=== PATIENT | male | born 1980 | race American Indian/Alaskan Native ===

== ENCOUNTER 2022-01-12 03:55 | Emergency (ER) | payer SELFPAY ==
--- NOTE | 2022-01-12 04:24 | Emergency Department Report ---
ED General Adult HPI - General Chief complaint: Allergic Reaction Stated complaint: ALLERGIC REACTION Time Seen by Provider: 01/12/22 04:08 Source: patient, EMS (Verbal report received from emergency medical services. EMS documentation not available at time of chart dictation ), RN notes reviewed Mode of arrival: Stretcher Limitations: No Limitations - History of Present Illness Initial comments: The patient is a 41-year-old gentleman, who presents to the ER today with a concern that he might be having an allergic reaction. He reports that he was at check[employer], and believes he consumed something that was covered in peanut oil. He reports that after consuming his meal, he had some itching, and some throat tightness. He reports taking generic [id number] allergy medicine, with some improvement in symptoms. Later on, he believes that he had recurrent symptoms, and family activated 911. EMS reports normal vital signs in the field, without stridor. EMS medicated patient empirically with Benadryl, steroids, and epinephrine. The patient reports that he feels like he is back to his baseline. He denies complaints at this time. -: Sudden Consistency: now resolved Improves with: medication Worsens with: none Associated Symptoms: denies other symptoms - Related Data Previous Rx's Medication Instructions Recorded Last Taken Type EPINEPHrine [Epipen 2-Al] 0.3 mg IM DAILY PRN #2 ml 01/12/22 Unknown Rx Famotidine [Pepcid] 20 mg PO BID #10 tablet 01/12/22 Unknown Rx diphenhydrAMINE [Benadryl] 50 mg PO Q8HR PRN #20 capsule 01/12/22 Unknown Rx Allergies Allergy/AdvReac Type Severity Reaction Status Date / Time peanut Allergy Unknown Verified 01/12/22 04:14 ED Review of Systems ROS: Stated complaint: ALLERGIC REACTION Other details as noted in HPI Comment: All other systems reviewed and negative ED Past Medical Hx - Medications Home Medications: Home Medications Medication Instructions Recorded Confirmed Last Taken Type EPINEPHrine [Epipen 2-Al] 0.3 mg IM DAILY PRN #2 ml 01/12/22 Unknown Rx Famotidine [Pepcid] 20 mg PO BID #10 tablet 01/12/22 Unknown Rx diphenhydrAMINE [Benadryl] 50 mg PO Q8HR PRN #20 capsule 01/12/22 Unknown Rx ED Physical Exam - General Limitations: No Limitations General appearance: alert, in no apparent distress - Head Head exam: Present: atraumatic, normocephalic - Eye Eye exam: Present: normal appearance, EOMI. Absent: nystagmus - ENT ENT exam: Present: normal exam, normal orophraynx, mucous membranes moist, normal external ear exam - Neck Neck exam: Present: normal inspection, full ROM. Absent: tenderness, meningismus - Respiratory Respiratory exam: Present: normal lung sounds bilaterally. Absent: respiratory distress, wheezes, rales, rhonchi, stridor, decreased breath sounds - Cardiovascular Cardiovascular Exam: Present: regular rate, normal rhythm, normal heart sounds. Absent: bradycardia, tachycardia, irregular rhythm, systolic murmur, diastolic murmur, rubs, gallop - GI/Abdominal GI/Abdominal exam: Present: soft. Absent: distended, tenderness, guarding, rebound, rigid, pulsatile mass - Rectal Rectal exam: Present: deferred - Extremities Exam Extremities exam: Present: normal inspection, full ROM, other (2+ pulses noted in the bilateral upper and lower extremities. There is no palpable cord. negative Homans sign. Muscular compartments are soft. The pelvis is stable.). Absent: pedal edema, calf tenderness - Back Exam Back exam: Present: normal inspection. Absent: tenderness, CVA tenderness (R), CVA tenderness (L), paraspinal tenderness, vertebral tenderness - Neurological Exam Neurological exam: Present: alert, oriented X3, other (No facial droop. Tongue midline. Extraocular movements intact bilaterally. Facial sensation intact to light touch in V1, V2, V3 distribution bilaterally. 5 and a 5 strength in 4 extremities. Sensation intact to light touch in 4 extremities.). Absent: motor sensory deficit - Psychiatric Psychiatric exam: Present: normal affect, normal mood - Skin Skin exam: Present: warm, dry, intact, normal color. Absent: rash ED Course Vital Signs 01/12/22 04:30 Temperature 98.3 F Pulse Rate 90 Respiratory 16 Rate Blood Pressure 142/92 [Left] O2 Sat by Pulse 97 Oximetry - Reevaluation(s) Reevaluation #1: 01/12/22 05:15 Patient reassessed multiple times. No respiratory distress. Saturating well on room air. Sleeping comfortably on stretcher. May be discharged. ED Medical Decision Making - Lab Data Vital Signs 01/12/22 04:30 Temperature 98.3 F Pulse Rate 90 Respiratory 16 Rate Blood Pressure 142/92 [Left] O2 Sat by Pulse 97 Oximetry - Medical Decision Making Differential diagnosis, including but not limited to: Allergic reaction, now resolved, encounter for medical screening examination Assessment and plan: 41-year-old gentleman, who is afebrile, with reassuring vital signs, without stridor, respiratory distress, or cutaneous findings, wheezing, currently saturating 100% on room air, likely with resolved allergic reaction. Patient will be observed in the emergency room. If no decompensation, discharged with as needed medications. May follow-up with an outpatient primary care doctor or construction checker for history of peanut allergies. Critical care attestation.: If time is entered above; I have spent that time in minutes in the direct care of this critically ill patient, excluding procedure time. ED Disposition Clinical Impression: Allergic reaction Qualifiers: Encounter type: initial encounter Qualified Code(s): T78.40XA - Allergy, unspecified, initial encounter Disposition: HOME / SELF CARE / HOMELESS Is pt being admited?: No Does the pt Need Aspirin: No Condition: Good Instructions: Allergies, Adult Additional Instructions: Please avoid consumption of peanuts and peanut related food items. Please follow-up with a primary care doctor or computer training specialist within the next 2 weeks. Use the epinephrine pen only if patient develops inability to speak or breathe, or throat tightening. If the symptoms develop, please use the EpiPen, and activate 911 right away. Benadryl and Pepcid can be taken as needed for itching, and allergy symptoms. Please return to the emergency room right away with new pain, worsened pain, migration of pain, projectile vomiting, change in mental status, confusion, inability tolerate liquid feeds, new, worsened or different symptoms not present on the initial emergency room evaluation Prescriptions: diphenhydrAMINE [Benadryl] 50 mg PO Q8HR PRN #20 capsule PRN Reason: Allergic Reaction EPINEPHrine [Epipen 2-Al] 0.3 mg IM DAILY PRN #2 ml PRN Reason: Allergic Reaction Famotidine [Pepcid] 20 mg PO BID #10 tablet Referrals: [facility] [Provider Group] - 3-5 Days Forms: Work/School Release Form(ED)
[2022-01-12 06:44] VITALS: BP 138/96
== END 2022-01-12 06:44 | disposition home or self-care (01) ==
LOC: ED 03:55
DX: T78.40XA Allergy, unspecified, initial encounter (principal); Z91.010 Allergy to peanuts; Z79.899 Other long term (current) drug therapy; X58.XXXA Exposure to other specified factors, initial encounter
CPT/HCPCS: 99283

== ENCOUNTER 2022-01-29 11:54 | Emergency (ER) | payer SELFPAY ==
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
[2022-01-29] MEDS ORDERED: methylPREDNISolone Sod Succinate 125 MG/2 ML INJ IV ONE (12:14)
[2022-01-29 14:43] VITALS: BP 141/100
--- NOTE | 2022-01-31 10:38 | Electrocardiograph Report ---
[facility] Test Date: 2022-01-29 Test Time: 12:08:39 Pat Name: EMMA REYNOSO Department: Room: Gender: M Culinary Internship: ER : 1980 Requested By: MELVA HUIZAR Order Number: [id number] Reading MD: Renny Sevilla Measurements Intervals [place] Rate: 69 P: 55 [place]: 149 QRS: 43 QRSD: 85 T: 32 QT: 364 QTc: 390 Interpretive Statements Sinus rhythm Probable left ventricular hypertrophy No previous ECG available for comparison Electronically Signed On 01-31-2022 10:37:24 EDT by Renny Sevilla
== END 2022-01-29 14:43 | disposition left against medical advice (07) ==
LOC: ED 11:54
DX: T78.1XXA Other adverse food reactions, not elsewhere classified, initial encounter (principal); Z79.899 Other long term (current) drug therapy; X58.XXXA Exposure to other specified factors, initial encounter
CPT/HCPCS: 93005; 96374; 99283; J2930

== ENCOUNTER 2022-03-29 14:48 | Emergency (ER) | payer SELFPAY ==
[2022-03-29 15:10] VITALS: BP 146/102
== END 2022-03-30 05:45 | disposition left against medical advice (07) ==
LOC: ED 14:48
DX: L02.412 Cutaneous abscess of left axilla (principal); Z53.21 Procedure and treatment not carried out due to patient leaving prior to being seen by health care provider

== ENCOUNTER 2022-05-08 07:07 | Emergency (ER) | payer SELFPAY ==
[2022-05-08] MEDS ORDERED: ASPIRIN 325 MG TAB PO ONE (07:25)
[2022-05-08 08:00] LABS: Basophils % (Auto) 0.4 % (0.0-1.8); Eosinophils # (Auto) 0.2 K/mm3 (0.0-0.4); Eosinophils % (Auto) 2.6 % (0.0-4.3); Hematocrit 44.7 % (35.5-45.6); Hemoglobin 14.6 gm/dl (11.8-15.2); Lymphocytes # (Auto) 2.5 K/mm3 (1.2-5.4); Lymphocytes % (Auto) 33.3 % (13.4-35.0); Mean Corpuscular HGB Conc 33 % (32-34); Mean Corpuscular Volume 89 fl (84-94); Monocytes # (Auto) 0.4 K/mm3 (0.0-0.8); Monocytes % (Auto) 5.9 % (0.0-7.3); Platelet Count 289 K/mm3 (140-440); Red Cell Distribution Width 14.9 % (13.2-15.2)
[2022-05-08 08:27] LABS: Alanine Aminotransferase 14 units/L (7-56); Albumin 4.8 g/dL (3.9-5); BUN/Creatinine Ratio 10; Blood Urea Nitrogen 11 mg/dL (9-20); Calcium 9.8 mg/dL (8.4-10.2); Hemolysis Index 3
--- NOTE | 2022-05-08 10:18 | XRay Report ---
CHEST 2 VIEWS INDICATION / CLINICAL INFORMATION: chest pain. COMPARISON: None available. FINDINGS: SUPPORT DEVICES: None. HEART / MEDIASTINUM: No significant abnormality. LUNGS / PLEURA: No significant pulmonary or pleural abnormality. No pneumothorax. ADDITIONAL FINDINGS: No significant additional findings. IMPRESSION: 1. No acute findings. Signer Name: Tawana Wells MD Signed: 05/08/2022 10:13 AM Workstation Name: [id number]
--- NOTE | 2022-05-08 11:24 | Electrocardiograph Report ---
[facility] Test Date: 2022-05-08 Test Time: 07:15:08 Pat Name: EMMA REYNOSO Department: Room: Gender: M Gynecology Teacher: Quirino WEBER RN : 1980 Requested By: ED DOC Order Number: [id number] Reading MD: Ld Guerra Measurements Intervals [place] Rate: 83 P: 61 [place]: 149 QRS: 42 QRSD: 83 T: 28 QT: 376 QTc: 443 Interpretive Statements Sinus rhythm Compared to ECG 01/29/2022 12:08:39 No significant changes Electronically Signed On 05-08-2022 11:23:38 EDT by Ld Guerra
--- NOTE | 2022-05-08 17:22 | Emergency Department Report ---
ED Chest Pain HPI - General Chief Complaint: Chest Pain Stated Complaint: CHEST PAIN/RIGHT ARM NUMBNESS Time Seen by Provider: 05/08/22 17:03 Source: patient Mode of arrival: Ambulatory Limitations: No Limitations - History of Present Illness Initial Comments: 41-year-old male with a past medical history of borderline diabetes (not currently on meds) and hypertension (not on medications for at least 2 years) presents to the hospital complaints of right sided chest and arm numbness and pain since 4 AM. Symptoms are constant. Pain worse with abduction of the right shoulder and palpation. Also experiencing tenderness to the right forearm. No trauma reported. Denies associated symptoms including nausea, vomiting, shortness of breath, or diaphoresis. Denies history of PE/DVT, recent travel, or elevated cholesterol. Patient is a smoker. States his mom has a history of CAD before the age of 65. Patient took a aspirin back and body tablet which helped his pain and it is currently very mild Despite not being on blood pressure medication for the last 2 years patient has normal blood pressure Severity scale (0 -10): 7 - Related Data Previous Rx's Medication Instructions Recorded Last Taken Type EPINEPHrine [Epipen 2-Al] 0.3 mg IM DAILY PRN #2 ml 01/12/22 Unknown Rx Famotidine [Pepcid] 20 mg PO BID #10 tablet 01/12/22 Unknown Rx diphenhydrAMINE [Benadryl] 50 mg PO Q8HR PRN #20 capsule 01/12/22 Unknown Rx Naproxen [Naprosyn] 500 mg PO BID PRN #20 tab 05/08/22 Unknown Rx Allergies Allergy/AdvReac Type Severity Reaction Status Date / Time banana Allergy Hives Verified 03/29/22 15:11 peanut Allergy Unknown Verified 01/29/22 12:03 Heart Score - HEART Score History: Slightly suspicious EKG: Normal Age: < 45 Risk factors: 1-2 risk factors Troponin: < normal limit HEART Score: 1 - EKG Read Time Time EKG Completed: 07:15 EKG Read Time: 07:26 ED Review of Systems ROS: Stated complaint: CHEST PAIN/RIGHT ARM NUMBNESS Other details as noted in HPI Comment: All other systems reviewed and negative ED Past Medical Hx - Past Medical History Previous Medical History?: Yes Hx Hypertension: Yes Hx Diabetes: Yes (Borderline) - Surgical History Past Surgical History?: Yes Additional Surgical History: 12 sx on right hand - Social History Smoking Status: Never Smoker - Medications Home Medications: Home Medications Medication Instructions Recorded Confirmed Last Taken Type EPINEPHrine [Epipen 2-Al] 0.3 mg IM DAILY PRN #2 ml 01/12/22 Unknown Rx Famotidine [Pepcid] 20 mg PO BID #10 tablet 01/12/22 Unknown Rx diphenhydrAMINE [Benadryl] 50 mg PO Q8HR PRN #20 capsule 01/12/22 Unknown Rx Naproxen [Naprosyn] 500 mg PO BID PRN #20 tab 05/08/22 Unknown Rx ED Physical Exam - General Limitations: No Limitations - Other Other exam information: General: No acute distress Head: Atraumatic Eyes: normal appearance ENT: Moist mucous membranes Neck: Normal appearance, no midline tenderness Chest: Clear to auscultation bilaterally, tenderness to right pectoralis muscle extending to right shoulder CV: Regular rate and rhythm Abdomen: Soft, normal bowel sounds, nontender, nondistended, no rebound or guarding Back: Normal inspection Extremity: Normal inspection, full range of motion, tenderness to right volar forearm without warmth, erythema, or swelling. Denies recent IV access Neuro: Alert O x 3, no facial asymmetry, speech clear, no gross motor sensory deficit, zixwbr-[id number]-[id number] function intact, stable gait, visual mcginnis intact, extraocular was intact Psych: Appropriate behavior Skin: No rash ED Course Vital Signs 05/08/22 07:21 Temperature 97.7 F Pulse Rate 85 Respiratory 20 Rate Blood Pressure 136/92 [Right] O2 Sat by Pulse 98 Oximetry DEEPTHI score - Deepthi Score Age > 65: (0) No Aspirin use within the Past 7 Days: (1) Yes 3 or more CAD Risk Factors: (0) No 2 or more Angina events in past 24 hrs: (0) No Known CAD with more than 50% Stenosis: (0) No Elevated Cardiac Markers: (0) No ST Deviation Greater than 0.5mm: (0) No DEEPTHI Score: 1 ED Medical Decision Making - Lab Data Result diagrams: 05/08/22 07:32 05/08/22 07:32 Lab Results 05/08/22 05/08/22 05/08/22 Range/Units 07:32 07:32 10:31 WBC 7.6 (4.5-11.0) K/mm3 RBC 5.00 (3.65-5.03) M/mm3 Hgb 14.6 (11.8-15.2) gm/dl Hct 44.7 (35.5-45.6) % MCV 89 (84-94) fl MCH 29 (28-32) pg MCHC 33 (32-34) % RDW 14.9 (13.2-15.2) % Plt Count 289 (140-440) K/mm3 Lymph % (Auto) 33.3 (13.4-35.0) % [place] % (Auto) 5.9 (0.0-7.3) % Eos % (Auto) 2.6 (0.0-4.3) % Baso % (Auto) 0.4 (0.0-1.8) % Lymph # (Auto) 2.5 (1.2-5.4) K/mm3 [place] # (Auto) 0.4 (0.0-0.8) K/mm3 Eos # (Auto) 0.2 (0.0-0.4) K/mm3 Baso # (Auto) 0.0 (0.0-0.1) K/mm3 Seg Neutrophils % 57.8 (40.0-70.0) % Seg Neutrophils # 4.4 (1.8-7.7) K/mm3 Sodium 142 (137-145) mmol/L Potassium 4.8 (3.6-5.0) mmol/L Chloride 103.8 (98-107) mmol/L Carbon Dioxide 29 (22-30) mmol/L Anion Gap 14 mmol/L BUN 11 (9-20) mg/dL Creatinine 1.1 (0.8-1.3) mg/dL Estimated GFR > 60 ml/min BUN/Creatinine Ratio 10 % Glucose 100 (75-100) mg/dL Calcium 9.8 (8.4-10.2) mg/dL Total Bilirubin 0.30 (0.1-1.2) mg/dL AST 14 (5-40) units/L ALT 14 (7-56) units/L Alkaline Phosphatase 59 (35-129) units/L Troponin T < 0.010 < 0.010 (0.00-0.029) ng/mL Total Protein 7.7 (6.3-8.2) g/dL Albumin 4.8 (3.9-5) g/dL Albumin/Globulin Ratio 1.7 % 05/08/ Range/Units 14:16 WBC (4.5-11.0) K/mm3 RBC (3.65-5.03) M/mm3 Hgb (11.8-15.2) gm/dl Hct (35.5-45.6) % MCV (84-94) fl MCH (28-32) pg MCHC (32-34) % RDW (13.2-15.2) % Plt Count (140-440) K/mm3 Lymph % (Auto) (13.4-35.0) % [place] % (Auto) (0.0-7.3) % Eos % (Auto) (0.0-4.3) % Baso % (Auto) (0.0-1.8) % Lymph # (Auto) (1.2-5.4) K/mm3 [place] # (Auto) (0.0-0.8) K/mm3 Eos # (Auto) (0.0-0.4) K/mm3 Baso # (Auto) (0.0-0.1) K/mm3 Seg Neutrophils % (40.0-70.0) % Seg Neutrophils # (1.8-7.7) K/mm3 Sodium (137-145) mmol/L Potassium (3.6-5.0) mmol/L Chloride (98-107) mmol/L Carbon Dioxide (22-30) mmol/L Anion Gap mmol/L BUN (9-20) mg/dL Creatinine (0.8-1.3) mg/dL Estimated GFR ml/min BUN/Creatinine Ratio % Glucose (75-100) mg/dL Calcium (8.4-10.2) mg/dL Total Bilirubin (0.1-1.2) mg/dL AST (5-40) units/L ALT (7-56) units/L Alkaline Phosphatase (35-129) units/L Troponin T < 0.010 (0.00-0.029) ng/mL Total Protein (6.3-8.2) g/dL Albumin (3.9-5) g/dL Albumin/Globulin Ratio % - EKG Data -: EKG Interpreted by Mt EKG shows normal: sinus rhythm, ST-T waves (no stemi) Rate: normal (83) - EKG Data When compared to previous EKG there are: no significant change - Radiology Data Radiology results: report reviewed CHEST 2 VIEWS INDICATION / CLINICAL INFORMATION: chest pain. COMPARISON: None available. FINDINGS: SUPPORT DEVICES: None. HEART / MEDIASTINUM: No significant abnormality. LUNGS / PLEURA: No significant pulmonary or pleural abnormality. No pneumothorax. ADDITIONAL FINDINGS: No significant additional findings. IMPRESSION: 1. No acute findings. - Medical Decision Making 41-year-old male presents for right-sided chest and arm pain reproducible on palpation. No sensory or motor deficit noted on neurologic exam. Symptoms improved with anti-inflammatory use prior to my evaluation. Patient has had extended ED stay and has had troponin negative x3, unchanged EKG, and a normal chest x-ray. Vital signs also within normal range. Patient does not currently see a primary care doctor. He will be treated with NSAIDs and encouraged to follow-up with PMD for further evaluation. Critical Care Time: No Critical care attestation.: If time is entered above; I have spent that time in minutes in the direct care of this critically ill patient, excluding procedure time. ED Disposition Clinical Impression: Musculoskeletal pain, Chest wall pain Disposition: 01 HOME / SELF CARE / HOMELESS Is pt being admited?: No Does the pt Need Aspirin: No Condition: Stable Instructions: Chest Wall Pain, [id number], Musculoskeletal Pain Additional Instructions: Take the medication as prescribed. Follow-up with your doctor or doctor/clinic provided. Return if symptoms worsen as indicated by your discharge instructions. Prescriptions: Naproxen [Naprosyn] 500 mg PO BID PRN #20 tab PRN Reason: Pain , Severe (7-10) Referrals: GALILEA TEMPLETON MD [Staff Physician] - 3-5 Days [facility] [Provider Group] - 3-5 Days Time of Disposition: 17:30
[2022-05-08 19:31] VITALS: BP 143/86
== END 2022-05-08 17:50 | disposition home or self-care (01) ==
LOC: ED 07:07
DX: M79.18 Myalgia, other site (principal); R07.9 Chest pain, unspecified; I10 Essential (primary) hypertension; E11.9 Type 2 diabetes mellitus without complications; Z91.018 Allergy to other foods; Z91.010 Allergy to peanuts
CPT/HCPCS: 36415; 71046; 80053; 84484; 85025; 93005; 99283

== ENCOUNTER 2022-06-03 10:17 | Emergency (ER) | payer SELFPAY ==
[2022-06-03] MEDS ORDERED: methylPREDNISolone Sod Succinate 125 MG/2 ML INJ IV ONE (10:22)
[2022-06-03] MEDS ORDERED: diphenhydrAMINE 50 MG/ML VIAL IV ONE (10:22)
[2022-06-03] MEDS ORDERED: FAMOTIDINE 20 MG/2 ML INJ IV ONE (10:22)
[2022-06-03] MEDS ORDERED: SODIUM CHLORIDE 0.9% 1000 ML 1,000 ML IV ONE (10:22)
[2022-06-03 10:25] VITALS: BP 116/98
--- NOTE | 2022-06-03 11:16 | Emergency Department Report ---
HPI - General Chief Complaint: Allergic Reaction PUI?: No Time Seen by Provider: 06/03/22 11:11 - HPI HPI: atient present to stating pos allergic reaction. Patient states he only had orange juice. ED Past Medical Hx - Past Medical History Hx Hypertension: Yes Hx Diabetes: Yes (Borderline) - Surgical History Additional Surgical History: 12 sx on right hand - Social History Smoking Status: Never Smoker - Medications Home Medications: Home Medications Medication Instructions Recorded Confirmed Last Taken Type EPINEPHrine [Epipen 2-Al] 0.3 mg IM DAILY PRN #2 ml 01/12/22 Unknown Rx Famotidine [Pepcid] 20 mg PO BID #10 tablet 01/12/22 Unknown Rx diphenhydrAMINE [Benadryl] 50 mg PO Q8HR PRN #20 capsule 01/12/22 Unknown Rx Naproxen [Naprosyn] 500 mg PO BID PRN #20 tab 05/08/22 Unknown Rx ED Review of Systems ROS: Stated complaint: ALLERGIC REACTION Other details as noted in HPI Constitutional: denies: chills, fever Eyes: denies: eye pain, eye discharge, vision change ENT: denies: ear pain, throat pain Respiratory: denies: cough, shortness of breath, wheezing Cardiovascular: denies: chest pain, palpitations Endocrine: no symptoms reported Gastrointestinal: denies: abdominal pain, nausea, diarrhea Genitourinary: denies: urgency, dysuria Musculoskeletal: denies: back pain, joint swelling, arthralgia Skin: denies: rash, lesions Neurological: denies: headache, weakness, paresthesias Psychiatric: denies: anxiety, depression Hematological/Lymphatic: denies: easy bleeding, easy bruising Physical Exam - Physical Exam Vital Signs: Vital Signs 06/03/22 10:23 Temperature 98.1 F Pulse Rate 145 H Blood Pressure 116/98 [Right] O2 Sat by Pulse 98 Oximetry General: not able to do ED Course Vital Signs 06/03/22 10:23 Temperature 98.1 F Pulse Rate 145 H Blood Pressure 116/98 [Right] O2 Sat by Pulse 98 Oximetry Critical care attestation.: If time is entered above; I have spent that time in minutes in the direct care of this critically ill patient, excluding procedure time. ED Disposition Clinical Impression: Allergic reaction Disposition: 07 LEFT AWOL/ELOPED Is pt being admited?: No Does the pt Need Aspirin: No Condition: Stable
== END 2022-06-03 14:00 | disposition left against medical advice (07) ==
LOC: ED 10:17
DX: T78.40XA Allergy, unspecified, initial encounter (principal); I10 Essential (primary) hypertension; E11.9 Type 2 diabetes mellitus without complications; Z91.018 Allergy to other foods; Z91.010 Allergy to peanuts; X58.XXXA Exposure to other specified factors, initial encounter
CPT/HCPCS: 99281